=== PATIENT | male | born 1975 | race Caucasian/White ===

== ENCOUNTER 2024-01-28 20:00 | Emergency (ER) | payer BC ==
[2024-01-28] MEDS: Diphtheria,Pertussis(Acell),Tetanus Vaccine 0.5 ML Syringe IM ONE (20:32)
[2024-01-28] MEDS: Cephalexin 250 MG Cap PO ONE (20:34)
== END 2024-01-28 20:45 | disposition home or self-care (01) ==
LOC: KA.ED 20:00
DX: S60.450A Superficial foreign body of right index finger, initial encounter (principal); Z23 Encounter for immunization; W45.8XXA Other foreign body or object entering through skin, initial encounter; Z79.899 Other long term (current) drug therapy
CPT/HCPCS: 90471; 90715; 99283-25; A9270-GY